=== PATIENT | male | born 1965 | race Caucasian/White ===

== ENCOUNTER → 2016-09-06 | Outpatient (CLI) | payer OTHER ==
--- NOTE | 2016-09-06 17:17 | DX ---
Cervical Spine, 6 Views History: Left radicular pain, evaluate for instability Technique: Upright AP, oblique, lateral neutral, lateral flexion, and lateral extension. Comparison: None Findings: There is an asymmetrically prominent left C7 transverse process. Cervical alignment is kathleen omic on the AP view. On the lateral view there is mild reversal the upper cervical curvature with a s light spondylolisthesis at C3-C4. Disk spaces maintain normal height. There is anterior osteophyte fo rmation and small calcifications of the anterior longitudinal ligament between C4 and C6. There is no prevertebral soft tissue swelling. There is no instability on lateral flexion-extension views. Oblique views reveal normally aligned facets. Degenerative facet spurring on the left at C5-C6 causes significant impingement of the upper portion of the foramen. Impression: 1. Left C5-C6 foraminal stenosis related to facet spurring. 2. Asymmetric enlargement of the left C7 transverse process.
== END ==
LOC: FIMAGING 12:21
PROVIDERS: ATTEND Psychiatry & Neurology Neurology
DX: M48.02 Spinal stenosis, cervical region (principal); M25.78 Osteophyte, vertebrae

== ENCOUNTER 2016-11-14 13:02 | Day surgery (SDC) | payer OTHER ==
[2016-11-14] MEDS ORDERED: BUPIVACAINE 0.5% 30 ML SDV ONE (14:41)
[2016-11-14] MEDS ORDERED: IOPAMIDOL (ISOVUE-M 300) 15 ML VIAL IV ONE (14:41)
[2016-11-14] MEDS ORDERED: DEPO METHYLPREDNISOLONE 80 MG/ML SDV ONE (14:41)
== END 2016-11-14 14:35 | disposition home or self-care (01) ==
LOC: FIMAGING 13:02
PROVIDERS: ATTEND Radiology Diagnostic Radiology
DX: M54.12 Radiculopathy, cervical region (principal); M48.02 Spinal stenosis, cervical region
CPT/HCPCS: J1040; Q9967

== ENCOUNTER 2018-05-14 05:52 | Inpatient (IN) | payer OTHER ==
[2018-05-14] MEDS ORDERED: ACETAMINOPHEN 500 MG TAB PO ONE (06:18)
[2018-05-14] MEDS ORDERED: ceFAZolin 2 GM/DEXTROSE 100 ML IV ONE (06:18)
[2018-05-14] MEDS ORDERED: GABAPENTIN 300 MG CAP PO ONE (06:18)
[2018-05-14] MEDS ORDERED: EPINEPHrine 1 MG/ML INJ ONE (06:19)
[2018-05-14] MEDS ORDERED: BUPIVACAINE 0.25% 30 ML SDV ONE (06:19)
[2018-05-14] MEDS ORDERED: THROMBIN (BOVINE) 5,000 UNIT VIAL TP ONE (06:20)
[2018-05-14] MEDS ORDERED: CHLORHEXIDINE GLUC HIBICLENS 118 ML BTL TP ONE (06:20)
[2018-05-14] MEDS ORDERED: LR 1,000 ML IV ONE (06:21)
[2018-05-14] MEDS ORDERED: LIDOCAINE 1% 2 ML INJ ID PRN (06:21)
[2018-05-14] MEDS ORDERED: BACITRACIN 50,000 UNITS/10 ML SYR IRR ONE (06:21)
--- NOTE | 2018-05-14 06:52 | PDHPUP ---
History & Physical Update H&P update statement: This history and physical update is based on an assessment of the patient which was completed after admission or registration (within 24 hours), but prior to the surgery/procedure. H&P update: H&P reviewed & patient examined, no change in patient's condition since H&P completed
[2018-05-14] MEDS ORDERED: HYDROmorphONE/DILAUDID 2 MG/ML INJ IVP PRN ×2 (06:55→11:20)
[2018-05-14] MEDS ORDERED: ONDANSETRON 4 MG/2 ML VIAL IVP PRN ×2 (06:55→11:20)
[2018-05-14] MEDS ORDERED: ALBUTEROL 3 ML DEYVIAL IH PRN (06:55)
[2018-05-14] MEDS ORDERED: oxyCODONE IR 5 MG TAB PO PRN (06:55)
[2018-05-14] MEDS ORDERED: NALOXONE HCL 0.4 MG/ML INJ IVP PRN (06:55)
[2018-05-14] MEDS ORDERED: DEXAMETHASONE 4 MG/ML VIAL IVP PRN (06:55)
[2018-05-14] MEDS ORDERED: MIDAZOLAM 2 MG/2 ML VIAL IVP ONE (06:55)
--- NOTE | 2018-05-14 06:56 | PDANEPAE ---
ANE History of Present Illness C3-5 ANE Past Medical History - Cardiovascular History Hx Hypertension: No Hx Arrhythmias: No Hx Chest Pain: No Hx Coronary Artery / Peripheral Vascular Disease: No Hx CHF / Valvular Disease: No Hx Palpitations: No - Pulmonary History Hx COPD: No Hx Asthma/Reactive Airway Disease: No Hx Recent Upper Respiratory Infection: No Hx Oxygen in Use at Home: No Hx Sleep Apnea: No Sleep Apnea Screening Result - Last Documented: Negative - Neurologic History Hx Cerebrovascular Accident: No Hx Seizures: No Hx Dementia: No - Endocrine History Hx Diabetes: No - Renal History Hx Renal Disorders: No - Liver History Hx Hepatic Disorders: No - Cancer History Hx Cancer: No - Congenital Disorder History Hx Congenital Disorders: No - GI History Hx Gastrointestinal Disorders: Yes - Other Health History Other Health History: CERVICAL STENOSIS. RADIO THERAPY ABLATION 12/2017. NT RT ARM/SHLDR - Chronic Pain History Chronic Pain: Yes (NECK,RT.SHLDR/ARM) - Surgical History Prior Surgeries: RT HEEL FUSION 08/2017. CERVICAL FUSION 06/2017. LT SHLDR RECONSTRUCTION ANE Review of Systems Review of Systems: - Exercise capacity METS (RN): 6 METS ANE Patient History - Allergies Allergies/Adverse Reactions: codeine Allergy (Verified 04/22/18 11:57) EXTREME NAUSEA Penicillins Allergy (Verified 04/22/18 11:32) Hives - Home Medications Home Medications: Ibuprofen mg Q4-6PRN PRN 11/09/16 [Last Taken Unknown] Prilosec DAILY 04/22/18 [Last Taken Unknown] - NPO status NPO Since - Liquids (Date): 05/13/18 NPO Since - Liquids (Time): 20:00 NPO Since - Solids (Date): 05/13/18 NPO Since - Solids (Time): 02:00 - Smoking Hx Smoking Status: Never smoked ANE Labs/Vital Signs - Vital Signs Blood Pressure: 164/96 Heart Rate: 69 Respiratory Rate: 16 O2 Sat (%): 94 Height: 177.8 cm Weight: 90.718 kg ANE Physical Exam - Airway Neck exam: FROM Mallampati Score: Class 2 Mouth exam: normal dental/mouth exam - Pulmonary Pulmonary: clear to auscultation - Cardiovascular Cardiovascular: regular rate and rhythym - ASA Status ASA Status: II ANE Anesthesia Plan Anesthesia Plan: general endotracheal anesthesia Total IV Anesthesia: Yes
[2018-05-14] MEDS ORDERED: REMIFENTANIL HCL 2 MG VIAL ONE ×2 (07:00→08:48)
[2018-05-14] MEDS ORDERED: PROPOFOL/EMULSION 500 MG/50 ML BOTTLE IV ONE ×5 (07:00→10:37)
[2018-05-14] MEDS ORDERED: SUCCINYLCHOLINE CHLORIDE 200 MG/10 ML SYR IVP ONE (07:07)
[2018-05-14] MEDS ORDERED: DEXAMETHASONE 4 MG/ML VIAL ONE ×2 (10:49)
[2018-05-14] MEDS ORDERED: RANITIDINE 50 MG/2 ML VIAL ONE (10:49)
[2018-05-14] MEDS ORDERED: ONDANSETRON 4 MG/2 ML VIAL ONE (10:49)
[2018-05-14] MEDS ORDERED: POLYETHYLENE GLYCOL 3350 17 GM PKT PO PRN (11:20)
[2018-05-14] MEDS ORDERED: LACTULOSE 20 GM/30 ML UDCUP PO PRN (11:20)
[2018-05-14] MEDS ORDERED: BISACODYL 10 MG SUPP PR PRN (11:20)
[2018-05-14] MEDS ORDERED: diphenhydrAMINE 25 MG CAP PO PRN (11:20)
[2018-05-14] MEDS ORDERED: MAGNESIUM HYDROXIDE 30 ML UDCUP PO PRN (11:20)
[2018-05-14] MEDS ORDERED: ONDANSETRON DISINTEGRATING 4 MG TAB PO PRN (11:20)
[2018-05-14] MEDS ORDERED: fentaNYL 100 MCG/2 ML INJ ONE (11:29)
[2018-05-14] MEDS ORDERED: NS 1,000 ML IV SCH (11:30)
--- NOTE | 2018-05-14 11:30 | POSTOPPROG ---
Post Op Note Date of Operation: 05/14/18 Surgeon: Tay [employer] Estimator: Kendal Chatterjee NP Anesthesiologist: Shyann Anesthesia: GET(General Endotracheal) Pre-op Diagnosis: Cervical Stenosis Procedure: ACDF C3-4 C4-5 with removal of plate at C5-6 Inf/Abcess present in the surg proc area at time of surgery?: No Depth: Deep Incisional (Fascial) EBL: 50-100 Total fluids administered: see anesthesia Complications: none Date of Surgery: 05/14/18 Post Op Day: 0 Assessment/Plan: Assessment: 52 yr old M s/p ACDF C3-4, C4-5 with removal of plate C5-6 Plan: -PT/OT/ST -Pain management, Aaron has worked for patient in past surgeries -Post op xrays in am -Please call neurosurgery with questions/concerns Subjective: Waking up in PACU Objective: waking up in pacu [place] X4 5/5 BUE, BLE Dressing CDI Collar in place Appropriate Neuro Check Frequency Ordered: Yes
[2018-05-14] MEDS ORDERED: HYDROmorphONE/DILAUDID 2 MG TAB PO PRN (11:32)
[2018-05-14] MEDS: fentaNYL 100 MCG/2 ML INJ IVP PRN ×2 (11:33→11:40)
[2018-05-14] MEDS ORDERED: HYDROmorphONE/DILAUDID 1 MG/ML INJ ONE (11:56)
[2018-05-14] MEDS: HYDROmorphONE/DILAUDID 1 MG/ML INJ IVP PRN ×2 (11:58→13:58)
--- NOTE | 2018-05-14 12:00 | GOP ---
DATE OF OPERATION: 05/14/2018 SURGEON: Patrice Light MD NEUROSURGEON: Patrice Light MD WASH [employer]ER OPERATOR: Kendal Chatterjee NP PREOPERATIVE DIAGNOSIS: Cervical spondylosis with severe right cervical radiculopathy, prior cervica l fusion C5-6. POSTOPERATIVE DIAGNOSIS: Cervical spondylosis with severe right cervical radiculopathy, prior cervic al fusion C5-6. PROCEDURE PERFORMED: Removal anterior cervical plating system at C5-6 without re-instrumentation at that level, anterior cervical diskectomy with decompression and arthrodesis C3-4, C4-5 (86765, [id number]) , placement of anterior cervical plate C3, C4, C5 (47510), same incision bone graft harvest, microsco pe, placement of structural bone allograft into the disk spaces at C3-4, C4-5, microscope. FINDINGS: Consistent with diagnosis. SPECIMENS: None. ESTIMATED BLOOD LOSS: 50 cc. INDICATIONS: The patient is a 52-year-old gentleman who underwent a successful C5-6 ACDF for left ce rvical radiculopathy. He did nicely with regard to his preoperative symptoms in the left arm, but so on after surgery began to develop right arm symptoms, and as time went on, the pain on the right side and right shoulder continued to get much worse. He failed extensive efforts at conservative treatme nt measures and multiple MRIs were done and the latest MRI being done recently did show severe right foraminal stenosis at C3-4 and C4-5 above his prior fusion. There is no evidence of compressive lesi on at the fused site. Because of his persistent discomfort, we offered him a 2-level fusion above the surgery site. The lms were reviewed with my partners who also agreed that a 2-sided surgery was warranted. His [employer] company did not approve of the use of PEEK as an intervertebral device into the cervical spine and according to their data, this is experimental. He had a cervical PEEK intervertebral device placed at C5-6 and achieved an excellent surgical outcome from that, but despite this, they would not approv e the placement of PEEK. We have used PEEK as intervertebral devices in our surgeries as a standard of care here in [facility] 2003. We have 7 neurosurgeons in the group and every single one of them prefers PEEK over bone a llograft. We are currently involved in a study trying to prove a difference between PEEK and bone al lograft from the results of the study are not yet published. Nevertheless, the insurance company did not consider PEEK to be standard of care despite our more than 15 year history of using PEEK for thi s purpose, and because of the insurance company's preference, we offered the patient bony allograft, which the insurance company would pay for. The patient consented to this. The risk of pseudoarthros is, adjacent segment disease, the possible continuation of symptoms, risk of esophageal injury, carot id injury, recurrent laryngeal nerve injury, dysphagia, hoarseness, and the possible need for future spine surgery was discussed. He knew these were the risks and he did want to proceed. DESCRIPTION OF PROCEDURE: Patient was taken to the operating room, placed in supine position. Gener al anesthesia was begun. A midline shoulder roll was placed. The cervical spine was kept neutral, b ut the occiput was extended. He was sterilely prepped and draped in the usual fashion. Localizing x -ray had been taken. We made an incision on the left side of the neck in the more rostral neck crease. The subcutaneous t issue was dissected using Bovie cautery through the platysma. We then used blunt and sharp dissectio n medial to the sternocleidomastoid and lateral to the strap muscles to work our way down the prevert ebral space. Exposure was extremely straightforward. We encountered the prior cervical plate at C5-6, dissected the scar tissue off the plate. The esopha carter was swept to the contralateral side and we removed the 4 locking cap systems and then removed all 4 screws in the plate itself. There was solid bony union at that level. I was happy with the appea nahum of the C5-6 level. We then turned our attention to the C3-4, C4-5, and dissected the longus colli muscles off the spine at those levels. He had a large ventral osteophytes at C4-5. We drilled this osteophyte away and white rvested it for autologous grafting purposes. We placed distraction pins in the C4-C5 vertebral body, distracted at that level, and then under the microscope, we removed the disk and the cartilaginous e ndplates. We decompressed the thecal sac and the neural foramen on each side. There was significant right more so than left neural foraminal compromise and we did a much more extensive decompression o n the patient's right-hand side. We got a great decompression of the exiting C5 nerve root. We chos e a 7 mm cortical bone allograft. It was pre-manufactured and had a hole in the middle. We enlarged this level slightly with the drill as is our custom. We packed the bone allograft with bone autogra ft that we had harvested from the osteophyte, as well as drilling some of the subchondral bone in the disk space at C4-5. We had a nice fill of the device. We inserted under the direct visualization i nto the C5-4 5 intervertebral space and nice fit was obtained. We moved our distraction pins to the C3-4, distracted at this level and then under the microscope rem petra the C3-4 disk and drilled and removed the cartilaginous endplates. We then drilled and harveste d some additional subchondral bone at this level for autologous grafting purposes. We opened the pos terior longitudinal ligament and performed foraminotomies bilaterally, but again here too, we did a m uch more extensive foraminotomy on the patient's right-hand side. A great decompression was obtained . We chose another 7 x 14 x 11 mm device. We increased the size of the central hole and then packed it with bone autograft. We then placed bone autograft in the intervertebral spaces at C3-4, C4-5. We prepped the ventral surface of the vertebral bodies for acceptance of the plate and we chose a 41 mm plate and we increased the lordosis of the plate. He did have straightening of the cervical spine . We placed a screw at C3, C4, and C5 and shot an x-ray. I was happy with all of the screws. We th en placed the remaining 3 screws for a total of 6, locked them according to company specification. A chieved meticulous hemostasis. Placed some 0.25% Marcaine with epinephrine in the prevertebral space . We then closed the incision in multiple layers using Vicryl sutures. There were no complications. T he patient tolerated the procedure well. COMPLICATIONS: None. INSTRUMENTATION REMOVED: [employer] Snowcap plating system at C5-6. INSTRUMENTATION USED: On this case was Medtronic Zevo 41 mm plate with 3.5 x 15 mm screws and we use d 2 structural Cornerstone bone allografts made by [employer] measuring 7 x 14 x 11, both at C3-4 and C4-5. COMPLICATIONS: None. /[id number]/MODL
[2018-05-14] MEDS ORDERED: METHOCARBAMOL 750 MG TAB ONE (12:23)
[2018-05-14] MEDS: METHOCARBAMOL 750 MG TAB PO PRN ×2 (12:25→16:09)
[2018-05-14] MEDS ORDERED: ACETAMINOPHEN 500 MG TAB PO SCH (14:00)
[2018-05-14] MEDS ORDERED: GABAPENTIN 300 MG CAP PO SCH (14:00)
[2018-05-14] MEDS ORDERED: ceFAZolin 2 GM/DEXTROSE 100 ML IV SCH (16:00)
--- NOTE | 2018-05-14 16:22 | ASMTCMCOM ---
VALENTIN Note CM Note Notes: Reviewed chart, pt in for scheduled surgery for C3-4 fusion. He lives at home with his and is normally independent. PT/OT to VALENTIN amaral w/f. DC Plan: TBD Date Signed: 05/14/2018 04:22 PM Electronically Signed By:Oliva Anguiano RN
[2018-05-14 17:36] VITALS: BP 161/89
[2018-05-14] MEDS ORDERED: SENNOSIDES/DOCUSATE SODIUM TAB PO SCH (21:00)
[2018-05-14] MEDS ORDERED: FAMOTIDINE 20 MG TAB PO SCH (21:00)
[2018-05-15] MEDS ORDERED: PANTOPRAZOLE SODIUM 40 MG TAB PO SCH (09:00)
--- NOTE | 2018-05-15 10:11 | PDMN ---
Medical Necessity Medical necessity: Pt meets inpt criteria per MD order and Musculoskeletal Surgery or Procedure [facility], [id number] Removal of anterior instrumentation, Medicare inpt only list, approved for inpt surgery auth #[id number]. 52 y/o admitted for ACDF C3-4, C4-5, hardware removal.
[2018-05-17] MEDS ORDERED: ENOXAPARIN 40 MG/0.4 ML SYR SC SCH (09:00)
--- NOTE | 2018-05-19 09:54 | POSTANESTH ---
Post Anesthetic Evaluation Cardiovascular Status: Normal, Stable Respiratory Status: Normal, Stable Level of Consciousness/Mental Status: Can Participate in Eval, Alert and Oriented Pain Control: Adequate, Prn Tx Ordered Nausea/Vomiting Control: Adequate, Prn Tx Ordered Complications Possibly Related to Anesthesia: None Noted
== END 2018-05-14 18:16 | disposition home or self-care (01) | DRG 473 ==
LOC: F3N 05:52
PROVIDERS: ADMIT Neurological Surgery; ATTEND Neurological Surgery
PROC: 0PP304Z Removal of Internal Fixation Device from Cervical Vertebra, Open Approach (ICD-10-PCS; principal; 2018-05-14 07:15)
PROC: 0RB30ZZ Excision of Cervical Vertebral Disc, Open Approach (ICD-10-PCS; principal; 2018-05-14 07:15)
PROC: 00NW0ZZ Release Cervical Spinal Cord, Open Approach (ICD-10-PCS; principal; 2018-05-14 07:15)
PROC: 01N10ZZ Release Cervical Nerve, Open Approach (ICD-10-PCS; principal; 2018-05-14 07:15)
PROC: 4A1004G Monitoring of Central Nervous Electrical Activity, Intraoperative, Open Approach (ICD-10-PCS; principal; 2018-05-14 07:15)
PROC: 0RG20A0 Fusion of 2 or more Cervical Vertebral Joints with Interbody Fusion Device, Anterior Approach, Anterior Column, Open Approach (ICD-10-PCS; principal; 2018-05-14 07:15)
DX: M47.22 Other spondylosis with radiculopathy, cervical region (principal); Z98.1 Arthrodesis status
CPT/HCPCS: C1713; J0171; J0330; J0690; J1100; J1170; J2250; J2405; J2704; J2780; J3010

== ENCOUNTER → 2018-07-17 | Outpatient (CLI) | payer OTHER | LOC: BMCIMAGING 15:54 | PROVIDERS: ATTEND Internal Medicine Rheumatology | DX: M85.861 Other specified disorders of bone density and structure, right lower leg (principal); M77.31 Calcaneal spur, right foot; M77.32 Calcaneal spur, left foot; M25.841 Other specified joint disorders, right hand; M25.842 Other specified joint disorders, left hand ==

== ENCOUNTER 2018-07-27 21:50 | Inpatient (IN) | payer OTHER ==
--- NOTE | 2018-07-27 22:12 | EDPHY ---
H & P Stated Complaint: left abd pain, flank Time Seen by Provider: 07/27/18 22:12 HPI/ROS: HPI CHIEF COMPLAINT: Abdominal pain, flank pain. HISTORY OF PRESENT ILLNESS: 52-year-old male presents to the emergency room with left sided abdominal pain. The patient states this started around noon today it is now 10:00 pm. The patient reports that it got better and then returned around 3:00 p.m. It has been rather constant left-sided abdominal pain some mild left flank pain. Dull achy pain. Denies chest pain or shortness of breath, denies fever, denies pleuritic pain. No diarrhea no vomiting. Denies nausea. Main complaint left-sided abdominal pain. Past Medical History: Hypertension, GERD Past Surgical History: Multiple orthopedic surgeries, appendectomy Social History: Denies drugs alcohol tobacco. Family History: Noncontributory ROS REVIEW OF SYSTEMS: 10 Systems were reviewed and negative with the exception of the elements mentioned in the history of present illness. Exam Constitutional triage nursing summary reviewed, vital signs reviewed, awake/ alert. Eyes normal conjunctivae and sclera, EOMI, PERRLA. HENT normal inspection, atraumatic, moist mucus membranes, no epistaxis, neck supple/ no meningismus, no raccoon eyes. Respiratory clear to auscultation bilaterally, normal breath sounds, no respiratory distress, no wheezing. Cardiovascular rate normal, regular rhythm, no murmur, no edema, distal pulses normal. Gastrointestinal mild tender palpation left lower quadrant left mid abdomen, no peritoneal signs, no rebound, no guarding, normal bowel sounds, no distension , no pulsatile mass. Genitourinary no CVA tenderness. Musculoskeletal no midline vertebral tenderness, full range of motion, no calf swelling, no tenderness of extremities, no meningismus, good pulses, neurovascularly intact. Skin pink, warm, & dry, no rash, skin atraumatic. Neurologic awake, alert and oriented x 3, AAOx3, moves all 4 extremities equally, motor intact, sensory intact, CN II-XII intact, normal cerebellar, normal vision, normal speech. Psychiatric normal mood/affect. Heme/Lymph/Immune no lymphadenopathy. Differential diagnosis includes but is not limited to and in no particular order : Bowel obstruction, appendicitis, gallbladder disease, diverticulitis, colitis , enteritis, perforated viscus, gastritis, GERD, esophagitis, urinary tract infection, pyelonephritis, kidney stones Medical Decision Making: Plan for this patient IV establishment IV fluid bolus IV Dilaudid for pain control IV Zofran nausea, urinalysis, lab work, CT scan abdomen pelvis with IV contrast. High suspicion for diverticulitis versus colitis versus kidney stone. Re-evaluation: CT scan abdomen pelvis: Called to me by Dr. Johnson this shows a high- grade small-bowel obstruction withFluid in the stomach distension. Would benefit from NG tube. CT scan reviewed. Will place NG tube. Updated patient. Consult surgery Dr. Sethi. [id number]. Source: Patient - Personal History Current Tetanus Diphtheria and Acellular Pertussis (TDAP): Yes - Medical/Surgical History Hx Asthma: No Hx Chronic Respiratory Disease: No Hx Diabetes: No Hx Cardiac Disease: No Hx Renal Disease: No Hx Cirrhosis: No Hx Alcoholism: No Hx HIV/AIDS: No Hx Splenectomy or Spleen Trauma: No - Social History Smoking Status: Never smoked Constitutional: Initial Vital Signs Temperature (C) 36.9 C 07/27/18 21:52 Heart Rate 67 07/27/18 21:52 Respiratory Rate 20 07/27/18 21:52 Blood Pressure 169/96 H 07/27/18 21:52 O2 Sat (%) 93 07/27/18 21:52 O2 Delivery Mode Nasal Cannula O2 (L/minute) 2 Allergies/Adverse Reactions: codeine Allergy (Verified 07/27/18 21:52) EXTREME NAUSEA Penicillins Allergy (Verified 07/27/18 21:52) Hives Home Medications: Medication Instructions Recorded Omeprazole 40 mg PO DAILY 04/22/18 Androgel 1.62% Gel Pump 4 pump TP DAILY 05/14/18 Acetaminophen [Tylenol 325mg (*)] 650 mg PO Q4H PRN tab 07/28/18 Propranolol Sr [Inderal LA 60mg 120 mg PO HS 07/28/18 (*)] traMADol [Ultram 50 mg (*)] 50 mg PO Q6HRS PRN #10 tab 07/28/18 Medical Decision Making - Data Points Laboratory Results: Laboratory Results 07/27/18 22:25 07/27/18 22:25 Medications Given: Discontinued Medications Bupivacaine HCl (Sensorcaine 0.5% Vial) Confirm Administered Dose 30 ml .ROUTE .STK-MED ONE Stop: 07/28/18 01:23 Last Admin: 07/28/18 02:43 Dose: 30 ml Diphenhydramine HCl (Benadryl Injection) 25 mg IVP Q6HRS PRN PRN Reason: Itching Stop: 01/24/19 04:32 Last Admin: 07/28/18 04:41 Dose: 25 mg Hydromorphone HCl (Dilaudid) 0.5 mg IVP EDNOW ONE Stop: 07/27/18 22:19 Last Admin: 07/27/18 22:27 Dose: 0.5 mg Hydromorphone HCl (Dilaudid) 1 mg IVP EDNOW ONE Stop: 07/28/18 00:10 Last Admin: 07/28/18 00:13 Dose: 1 mg Sodium Chloride (Ns) 1,000 mls @ 0 mls/hr IV EDNOW ONE; Wide Open PRN Reason: Protocol Stop: 07/27/18 22:18 Last Admin: 07/27/18 22:27 Dose: 1,000 mls Sodium Chloride (Ns) 1,000 mls @ 0 mls/hr IV EDNOW ONE; Wide Open PRN Reason: Protocol Stop: 07/27/18 22:18 Last Admin: 07/27/18 22:27 Dose: 1,000 mls Ceftriaxone Sodium 2 gm/ (Sodium Chloride) 50 mls @ 100 mls/hr IV EDNOW ONE PRN Reason: Protocol Stop: 07/28/18 01:12 Last Admin: 07/28/18 02:00 Dose: 50 mls Metronidazole/Sodium Chloride (Flagyl 500 Mg (Premix)) 100 mls @ 100 mls/hr IV EDNOW ONE PRN Reason: Protocol Stop: 07/28/18 01:42 Last Admin: 07/28/18 02:12 Dose: 100 mls Potassium Chloride/Dextrose/Sod Cl (D5w 1/2 Ns W/ 20 Kcl/L) 1,000 mls @ 100 mls /hr IV CONT ALFREDO Stop: 01/24/19 03:14 Last Admin: 07/28/18 12:52 Dose: 1,000 mls Ketorolac Tromethamine (Toradol) 15 mg IVP Q6HRS ALFREDO Stop: 08/02/18 05:59 Last Admin: 07/28/18 11:10 Dose: Not Given Metaxalone (Skelaxin) 800 mg PO TID PRN PRN Reason: Headache Stop: 01/24/19 11:27 Last Admin: 07/28/18 11:41 Dose: 800 mg Ondansetron HCl (Zofran) 4 mg IVP EDNOW ONE Stop: 07/27/18 22:18 Last Admin: 07/27/18 22:27 Dose: 4 mg Departure - Departure Disposition: [facility] Acute Clinical Impression: SBO (small bowel obstruction) Condition: Good
[2018-07-27] MEDS ORDERED: NS 1,000 ML IV ONE ×2 (22:17)
[2018-07-27] MEDS ORDERED: ONDANSETRON 4 MG/2 ML VIAL IVP ONE (22:17)
[2018-07-27] MEDS ORDERED: HYDROmorphONE/DILAUDID 2 MG/ML INJ IVP ONE (22:18)
[2018-07-27 22:45] LABS: INR 0.98 (0.83-1.16); PROTIME(PATIENT) 13.2 SEC (12.0-15.0)
[2018-07-27 22:53] LABS: PLATELET COUNT 233 10^3/uL (150-400)
[2018-07-27] MEDS ORDERED: IOPAMIDOL (ISOVUE 370) 100 ML BTL IV ONE (23:36)
[2018-07-28] MEDS ORDERED: HYDROmorphONE/DILAUDID 2 MG/ML INJ IVP ONE (00:09)
[2018-07-28] MEDS ORDERED: HYDROmorphONE/DILAUDID 1 MG/ML INJ ONE (00:09)
[2018-07-28] MEDS ORDERED: ONDANSETRON 4 MG/2 ML VIAL ONE ×2 (00:20→01:33)
--- NOTE | 2018-07-28 01:11 | GHP ---
DATE OF ADMISSION: 07/27/2018 CHIEF COMPLAINT: Small bowel obstruction. HISTORY OF PRESENT ILLNESS: The patient is a 52-year-old man who, in retrospect , has had long-term problems with his bowel habits. He reports that his weight will go up from a baseline of 201 pounds to 208 pounds over the course of the week, and he will have several bowel movements, and then his weight will go back down. He uses Metamucil to control his appetite. He had a bowel movement this morning; however, later in the day, he began having abdominal pain, which escalated to the point where he was miserable when he presented to the emergency room. The pain has improved with Dilaudid. He has not had emesis. He had a CT scan obtained of his abdomen and pelvis, which showed a high-grade obstruction in the right lower quadrant. PAST MEDICAL HISTORY: GERD and hypertension. PAST SURGICAL HISTORY: Intussusception as a child, appendectomy, knee surgeries , and cervical fusion. SOCIAL HISTORY: He is a nonsmoker. He lives in [place]. FAMILY HISTORY: No history of bowel disease. REVIEW OF SYSTEMS: Denies fevers, chills, hematuria, dysuria. PHYSICAL EXAM: VITALS: Reviewed. He is hypertensive. GENERAL: Pleasant, sitting up on gurney, well nourished, and well groomed. HEENT: Normocephalic. No gross hearing deficits. Mucous membranes moist. Pupils equal and round. No scleral icterus. LUNGS: Clear to auscultation bilaterally. No increased work of breathing. CARDIAC: Regular rate. No peripheral edema. ABDOMEN: Distended. It is very quiet. He is tender to palpation. He has a paramedian incision that is well healed. SKIN: Warm and dry. PSYCH: Mood and affect normal. NEURO: Grossly intact. IMPRESSION AND PLAN: A 52-year-old with high-grade small bowel obstruction. We discussed nasogastric decompression versus a laparotomy. I told him that I thought it was very unlikely I would be able to accomplish this laparoscopically. He felt that his pain was so significant prior to the Dilaudid that he would like to proceed with surgery. The risks and benefits were discussed. He will have a nasogastric tube placed prior to OR to decompress his stomach. Antibiotics salesperson burial plots to the operating room. /[id number]/MODL MTDD
[2018-07-28] MEDS ORDERED: BUPIVACAINE 0.5% 30 ML SDV ONE (01:22)
[2018-07-28] MEDS ORDERED: LIDOCAINE 2% 5 ML SDV ONE (01:33)
[2018-07-28] MEDS ORDERED: DEXAMETHASONE 4 MG/ML VIAL ONE (01:33)
[2018-07-28] MEDS ORDERED: fentaNYL 100 MCG/2 ML INJ ONE (01:33)
[2018-07-28] MEDS ORDERED: ROCURONIUM 100 MG/10 ML VIAL ONE (01:33)
[2018-07-28] MEDS ORDERED: PROPOFOL 200 MG/20 ML VIAL ONE (01:33)
[2018-07-28] MEDS ORDERED: METOCLOPRAMIDE 10 MG/2 ML VIAL IVP PRN (01:38)
[2018-07-28] MEDS ORDERED: ONDANSETRON 4 MG/2 ML VIAL IVP PRN ×2 (01:38→03:04)
[2018-07-28] MEDS ORDERED: fentaNYL 100 MCG/2 ML INJ IVP PRN (01:38)
[2018-07-28] MEDS ORDERED: PROMETHAZINE HCL 25 MG/ML INJ IVP PRN ×2 (01:38→03:04)
[2018-07-28] MEDS ORDERED: HYDROmorphONE/DILAUDID 2 MG/ML INJ IVP PRN (01:38)
[2018-07-28] MEDS ORDERED: MEPERIDINE 25 MG/0.5 ML AMP IVP PRN (01:38)
[2018-07-28] MEDS ORDERED: NALOXONE HCL 0.4 MG/ML INJ IVP PRN (01:38)
[2018-07-28] MEDS ORDERED: LR 500 ML IV PRN (01:38)
[2018-07-28] MEDS ORDERED: PHENYLEPHRINE HCL 100 MCG/ML SYR IVP PRN (01:38)
[2018-07-28] MEDS ORDERED: oxyCODONE IR 5 MG TAB PO PRN (01:38)
--- NOTE | 2018-07-28 01:51 | PDANEPAE ---
ANE Past Medical History - Cardiovascular History Hx Hypertension: Yes Hx Arrhythmias: No Hx Chest Pain: No Hx Coronary Artery / Peripheral Vascular Disease: No Hx CHF / Valvular Disease: No Hx Palpitations: No - Pulmonary History Hx COPD: No Hx Asthma/Reactive Airway Disease: No Hx Recent Upper Respiratory Infection: No Hx Oxygen in Use at Home: No Hx Sleep Apnea: No - Neurologic History Hx Cerebrovascular Accident: No Hx Seizures: No Hx Dementia: No - Endocrine History Hx Diabetes: No - Renal History Hx Renal Disorders: No - Liver History Hx Hepatic Disorders: No - Cancer History Hx Cancer: No - Congenital Disorder History Hx Congenital Disorders: No - GI History GERD: moderate Hx Gastrointestinal Disorders: Yes - Other Health History Other Health History: CERVICAL STENOSIS. RADIO THERAPY ABLATION 12/2017. NT RT ARM/SHLDR - Chronic Pain History Chronic Pain: Yes (NECK,RT.SHLDR/ARM) - Surgical History Prior Surgeries: RT HEEL FUSION 08/2017. CERVICAL FUSION 06/2017. LT SHLDR RECONSTRUCTION ANE Review of Systems Review of Systems: ANE Patient History - Allergies Allergies/Adverse Reactions: codeine Allergy (Verified 07/27/18 21:52) EXTREME NAUSEA Penicillins Allergy (Verified 07/27/18 21:52) Hives - Home Medications Home Medications: Omeprazole 40 mg PO DAILY 04/22/18 [Last Taken Unknown] Androgel 1.62% Gel Pump 4 pump TP DAILY 05/14/18 [Last Taken Unknown] - Anes Hx Anes Hx: no prior problems - Smoking Hx Smoking Status: Never smoked - Family Anes Hx Family Anes Hx: none ANE Labs/Vital Signs - Labs Result Diagrams: 07/27/18 22:25 07/27/18 22:25 - Vital Signs Blood Pressure: 155/86 Heart Rate: 86 Respiratory Rate: 20 O2 Sat (%): 89 Height: 177.8 cm Weight: 92.986 kg ANE Physical Exam - Airway Neck exam: FROM Mallampati Score: Class 2 Mouth exam: normal dental/mouth exam - Pulmonary Pulmonary: no respiratory distress, no rales or rhonchi, clear to auscultation - Cardiovascular Cardiovascular: regular rate and rhythym, no murmur, rub, or gallop - ASA Status ASA Status: II, E ANE Anesthesia Plan Anesthesia Plan: general endotracheal anesthesia
[2018-07-28] MEDS ORDERED: HYDROmorphONE/DILAUDID 2 MG/ML INJ ONE (02:26)
[2018-07-28] MEDS ORDERED: SUGAMMADEX SODIUM 200 MG/2 ML VIAL IVP ONE (02:37)
[2018-07-28] MEDS ORDERED: traMADol 50 MG TAB PO PRN (03:04)
[2018-07-28] MEDS ORDERED: ACETAMINOPHEN 325 MG TAB PO PRN (03:04)
--- NOTE | 2018-07-28 03:07 | POSTOPPROG ---
Post Op Note Date of Operation: 07/28/18 Surgeon: Marge Sethi Anesthesiologist: clinton Anesthesia: GET(General Endotracheal) Pre-op Diagnosis: sbo Post-op Diagnosis: sbo Indication: 52 yo with sbo Procedure: diagnostic laparoscopy with suman Findings: dilated bowel with no distinct etiology Inf/Abcess present in the surg proc area at time of surgery?: No Depth: Superfical (Skin SQ) Specimen(s): none
--- NOTE | 2018-07-28 03:24 | POSTANESTH ---
Post Anesthetic Evaluation Cardiovascular Status: Normal, Stable Respiratory Status: Normal, Stable Level of Consciousness/Mental Status: Can Participate in Eval Pain Control: Adequate, Prn Tx Ordered Nausea/Vomiting Control: Adequate, Prn Tx Ordered Complications Possibly Related to Anesthesia: None Noted
[2018-07-28] MEDS: D5W 1/2 NS W/ 20 KCl/L 1,000 ML IV SCH ×2 (04:43→12:52)
[2018-07-28] MEDS: KETOROLAC 15 MG/1 ML SDV IVP SCH ×2 (04:51→11:10)
--- NOTE | 2018-07-28 05:58 | GOP ---
DATE OF OPERATION: 07/28/2018 SURGEON: Marge Sethi MD ANESTHESIA: General. ANESTHESIOLOGIST: Michel Canela MD PREOPERATIVE DIAGNOSIS: Small-bowel obstruction. POSTOPERATIVE DIAGNOSIS: Small-bowel obstruction. PROCEDURE PERFORMED: Diagnostic laparoscopy, lysis of adhesions. FINDINGS: He had some omentum adhered to the anterior abdominal wall in the midline, although this was not causing distinct obstruction with the bowel. SPECIMENS: None. ESTIMATED BLOOD LOSS: 10 cc. INDICATIONS: Saul is a 52-year-old man with a history of intussusception and appendectomy who presented with a bowel obstruction. He had a high-grade obstruction on CT with a transition point in the right lower quadrant. Saul and I discussed placing NG and watchful waiting and see if decompression would alleviate the problem versus going to the operating room. Saul wanted expeditious operative treatment. DESCRIPTION OF PROCEDURE: Patient was brought into the operating room, placed supine on the table, and general anesthesia was administered. His abdomen was prepped and draped in the usual sterile fashion. I infiltrated all sites with 0.5% Marcaine prior to making incisions. I made my 1st incision in the left upper quadrant. I elevated it. I inserted the Veress needle, it passed the hang drop test. His abdomen insufflated easily to a pressure of 15 mmHg. I placed a 5 mm trocar with a camera at this site. There were no injuries from Veress needle placement. Under direct vision, I placed 2 additional trocars. I explored his abdomen. I could definitely see dilated bowel in the pelvis. I ran his small intestine from the terminal ileum to the ligament of Treitz twice. There was a distinct area where the bowel was dilated and not dilated. I palpated this and did not feel anything with the grasper intraluminally. I did see a white line on the small bowel possibly indicating an obstruction that had reduced. We ran the bowel a 2nd time and again no abnormalities noted. There was an adhesion to the anterior abdominal wall, which I took down with heated Endo Trice. I examined his colon and did not see any abnormalities. The stomach did not appear abnormal. Trocars removed under direct vision. Abdomen allowed to desufflate. Skin closed with 4-0 Monocryl. Dermabond applied. He was awakened in the operating room, extubated, transferred to PACU in stable condition. /[id number]/MODL MTDD
--- NOTE | 2018-07-28 08:11 | PDMN ---
Medical Necessity Medical necessity: Pt meets inpt criteria per MD order and MCG M-210, Intestinal Obstruction, 2 days. 52 y/o w/increasing abd pain, found to have high grade mid sm bowel obstruction, admitted for diagnostic lap w/lysis of adhesions and post-op care.
[2018-07-28] MEDS ORDERED: METAXALONE 800 MG TAB PO PRN (11:28)
--- NOTE | 2018-07-28 12:34 | SOAPPROG ---
SOAP Progress Note Assessment/Plan: Assessment: POD # 0 s/p diagnostic lap doing much better Passing flatus Clears Added Skelaxin for migraines S: Much improved. No nausea O: Sitting up smiling ctab regular rate bs present soft, less distended incisions cdi Plan: 07/28/18 12:33 Objective: Vital Signs Temp Pulse Resp BP Pulse Ox 37.1 C 57 L 16 130/88 H 95 07/28/18 11:33 07/28/18 11:33 07/28/18 11:33 07/28/18 11:33 07/28/18 11:33 07/27/18 07/28/18 07/29/18 05:59 05:59 05:59 Intake Total 1050 Output Total 860 300 Balance 190 -300 PT 13.2 SEC (12.0-15.0) 07/27/18 22:25 INR 0.98 (0.83-1.16) 07/27/18 22:25 ICD10 Worksheet Patient Problems: Problems Problem Status Onset SBO (small bowel obstruction) Acute
--- NOTE | 2018-07-28 15:20 | ASMTCMCOM ---
CM Note CM Note Notes: Pt is a 52 y/o man admitted for small bowel obstruction. Pt will most likely d/c independent when medically stable. No therapies ordered at this time. CM available for changes. Plan: Independent Date Signed: 07/28/2018 03:19 PM Electronically Signed By:EULALIO Ortiz
[2018-07-28 16:06] VITALS: BP 130/74
[2018-07-28] MEDS ORDERED: PROPRANOLOL SR 60 MG CAP PO SCH (21:00)
== END 2018-07-28 17:38 | disposition home or self-care (01) | DRG 337 ==
LOC: OBSVTOIN 07-28 03:04 → F3E 07-28 04:15
PROVIDERS: ADMIT Surgery; ATTEND Surgery
PROC: 0DN84ZZ Release Small Intestine, Percutaneous Endoscopic Approach (ICD-10-PCS; principal; 2018-07-28 01:30)
DX: K56.50 Intestinal adhesions [bands], unspecified as to partial versus complete obstruction (principal); E86.9 Volume depletion, unspecified; I10 Essential (primary) hypertension; K21.9 Gastro-esophageal reflux disease without esophagitis
CPT/HCPCS: 96374; J0696; J1100; J1170; J1200; J1885; J2405; J2704; J3010; Q9967